=== PATIENT | female | born 1980 | race Caucasian/White ===

== ENCOUNTER → 2020-08-10 | Outpatient (CLI) | payer OTHER | END | disposition home or self-care (01) | LOC: CFH 08:07 | PROVIDERS: ATTEND Obstetrics & Gynecology | DX: N63.20 Unspecified lump in the left breast, unspecified quadrant (principal) | CPT/HCPCS: 76642 ==

== ENCOUNTER 2020-10-01 13:03 | Day surgery (SDC) | payer OTHER ==
[~2020-10-01] VITALS: Ht 165.1 cm; Wt 75.3 kg
[~2020-10-01 13:03] MED LIST: ACET-76 PO; BUPIVACAINE/PF 0.5% ONE; CYAN25009 PO; EPINEPHRINE 1 MG/ML, 1ML ONE; FLUT9.9S NS; IBUP-1221 PO; [UNRECOGNIZED DRUG - OTHER] PO; collagen peptides PO
[2020-10-01] MEDS ORDERED: CHLORHEXIDINE 15 ML UDC ONE (13:29)
[2020-10-01 13:30] LABS: HCG UR SG 1.019 (1.003-1.030)
[2020-10-01] MEDS ORDERED: CHLORHEXIDINE 15 ML UDC PO ONE (13:30)
[2020-10-01] MEDS ORDERED: LACTATED RINGERS 1,000 ML IV SCH (13:30)
[2020-10-01] MEDS ORDERED: FENTANYL PF 250 MCG/5ML ONE (15:06)
[2020-10-01] MEDS ORDERED: MIDAZOLAM 1 MG/ML, 2ML ONE (15:06)
[2020-10-01] MEDS ORDERED: PROPOFOL 10 MG/ML, 20ML ONE (16:09)
[2020-10-01] MEDS ORDERED: DEXAMETHASONE 4 MG/ML, 5ML ONE (16:09)
[2020-10-01] MEDS ORDERED: CEFAZOLIN 1,000 MG ONE (16:52)
[2020-10-01] MEDS ORDERED: KETOROLAC 30 MG/1 ML ONE (16:56)
[2020-10-01] MEDS ORDERED: ONDANSETRON 2MG/ML, 2ML ONE (17:26)
[2020-10-01] MEDS ORDERED: PROMETHAZINE 25 MG/ML, 1ML IVPush PRN (17:30)
[2020-10-01] MEDS ORDERED: MEPERIDINE/PF 25MG/0.5ML IVPush PRN (17:30)
[2020-10-01] MEDS ORDERED: ACETAMINOPHEN 325 MG TABLET PO PRN (17:30)
[2020-10-01] MEDS ORDERED: FENTANYL PF 100 MCG/2ML IV PRN (17:30)
[2020-10-01] MEDS ORDERED: HYDROmorphone 1 MG/ML, 1ML INJ IVPush PRN (17:30)
[2020-10-01] MEDS ORDERED: ONDANSETRON 2MG/ML, 2ML IVPush PRN (17:30)
[2020-10-01] MEDS ORDERED: OXYcodone 5 MG/5 ML ORAL.SOL UDC PO PRN (17:30)
[2020-10-01] MEDS ORDERED: hydrALAzine 20 MG/ML, 1ML IV PRN (17:30)
[2020-10-01] MEDS ORDERED: LABETALOL 5MG/ML, 20ML IV PRN (17:30)
[2020-10-01] MEDS ORDERED: HYDR-2214 PO (17:47)
[2020-10-01] MEDS ORDERED: ONDA4TAB7 PO (17:47)
== END 2020-10-01 18:55 | disposition home or self-care (01) ==
LOC: OR 13:03
PROVIDERS: ATTEND Surgery
DX: N64.52 Nipple discharge (principal); T85.44XA Capsular contracture of breast implant, initial encounter; Z20.822 Contact with and (suspected) exposure to COVID-19; Y83.8 Other surgical procedures as the cause of abnormal reaction of the patient, or of later complication, without mention of misadventure at the time of the procedure
CPT/HCPCS: 19120; 81025; 88307; J0171; J0690; J1100; J1885; J2250; J2405; J2704; J3010; J7120; U0003; U0005